=== PATIENT | male | born 1980 | race Caucasian/White ===

== ENCOUNTER 2018-05-15 10:52 | Outpatient (CLI) | payer BC, SELFPAY ==
--- NOTE | 2018-05-15 10:57 | DI.REPORT_ITS ---
SYMPTOMS/DIAGNOSIS: COUGH, WHEEZING, CHEST PAIN, R07.9 PA AND LATERAL CHEST: Comparison 05/15/15. The heart is normal in size. The lungs are clear. The mediastinal structures and pleura appear intact. CONCLUSION: Normal chest.
== END 2018-05-15 10:53 ==
PROVIDERS: PCP Family Medicine
DX: R07.9 Chest pain, unspecified (principal); R05 Cough; R06.2 Wheezing
CPT/HCPCS: 71046

== ENCOUNTER 2018-07-28 01:14 | Outpatient (CLI) | payer BC, SELFPAY ==
--- NOTE | 2018-07-28 06:51 | DI.US_ITS ---
SYMPTOMS/DIAGNOSIS: ABDOMINAL PAIN, LEFT LOWER QUADRANT, R10.9, ? HERNIA; LEFT TESTICULAR PAIN, N50.812 ABDOMINAL ULTRASOUND: Routine examination. The aorta and IVC are unremarkable. The liver, gallbladder, common duct, kidneys and spleen are unremarkable. The pancreas was not well visualized due to overlying bowel. No free fluid is seen in the abdomen. IMPRESSION: Negative abdominal ultrasound. TESTICULAR ULTRASOUND: Routine examination. The right testicle measures 5 x 4.3 x 2.7 cm. It is homogeneous with normal blood flow. No intratesticular masses seen. There is a single 1 mm calcification in the right testicle. The right epididymis shows no evidence of a mass. There is normal blood flow. The left testicle measures 4.7 x 3.7 x 2.0 cm. It is homogeneous with normal blood flow. No intratesticular masses seen. There are two 2 mm calcifications seen within the testicle. The left epididymis appears grossly unremarkable with normal blood flow. Incidental note is made of a left varicocele. IMPRESSION: No evidence of an intratesticular mass. No evidence to suggest epididymitis, or orchitis or testicular torsion. ULTRASOUND OF THE INGUINAL REGION: Sonographic evaluation of the inguinal regions was performed bilaterally. No findings to suggest an inguinal hernia are seen sonographically. The infraumbilical region was evaluated sonographically. No findings to suggest an infraumbilical hernia are seen. IMPRESSION: No evidence of an inguinal or infraumbilical hernia.
== END 2018-07-28 01:34 ==
PROVIDERS: PCP Family Medicine; Visit Provider Family Medicine
DX: R10.32 Left lower quadrant pain (principal); N50.812 Left testicular pain; I86.1 Scrotal varices
CPT/HCPCS: 76857; 76700; 76870

== ENCOUNTER 2018-11-24 01:04 | Outpatient (CLI) | payer BC, SELFPAY ==
[2018-11-24 09:44] LABS: Cholesterol 164 mg/dL (50-200); Glucose 114 mg/dL (70-100); HDL Cholesterol 56 mg/dL (40-60); LDL CHOLESTEROL 90 mg/dL (<100); TSH 3.06 uIU/mL (0.358-3.74); Triglyceride 71 mg/dL (30-150)
[2018-11-24 10:02] LABS: FREE T4 0.96 ng/dL (0.76-1.46)
== END 2018-11-24 01:24 ==
PROVIDERS: Nurse Practitioner Family; PCP Family Medicine; Visit Provider Family Medicine
DX: E03.9 Hypothyroidism, unspecified (principal); E78.5 Hyperlipidemia, unspecified
CPT/HCPCS: 36415; 80061; 82947; 83721; 84439; 84443

== ENCOUNTER 2019-02-21 10:36 | Outpatient (CLI) | payer BC, SELFPAY ==
[2019-02-21 13:01] LABS: ALT 38 U/L (12-78); AST 27 U/L (15-37); Albumin 3.9 g/dL (3.4-5.0); Alkaline Phosphatase 81 U/L (46-116); Bilirubin, Direct 0.13 mg/dL (0.00-0.20); Bilirubin, Total 0.5 mg/dL (0.2-1.0)
[2019-02-23 19:21] LABS: Testosterone, Free 16.1 ng/dL (4.65-18.1); Testosterone, Total 575 ng/dL (240-950)
== END 2019-02-21 10:56 ==
PROVIDERS: PCP Family Medicine; Visit Provider Internal Medicine
DX: S30.1XXA Contusion of abdominal wall, initial encounter (principal); R53.83 Other fatigue
CPT/HCPCS: 36415; 80076; 84402; 84403

== ENCOUNTER 2019-10-20 15:26 | Emergency (ER) | payer BC, SELFPAY ==
[2019-10-20 15:32] VITALS: BP 124/79; PULSE 87; RESP 16; TEMP 36.8; O2SAT 96
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
[2019-10-20] MEDS: Ketorolac 60 MG/2 ML VIAL IM (16:09)
[2019-10-20] MEDS: Lidocaine 5% Patch 1 PATCH TP (16:09)
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
[2019-10-20] MEDS: Methocarbamol 500 MG TAB 1000 MG PO (17:29)
== END 2019-10-20 17:33 | disposition home or self-care (01) ==
PROVIDERS: Emergency Provider Physician Assistant; PCP Family Medicine
DX: M54.5 Low back pain (principal); S39.012A Strain of muscle, fascia and tendon of lower back, initial encounter; V43.52XA Car driver injured in collision with other type car in traffic accident, initial encounter
CPT/HCPCS: 96372; 99284; 72110; J1885

== ENCOUNTER 2019-11-26 08:40 | Outpatient (CLI) | payer BC, SELFPAY ==
[2019-11-26 10:17] LABS: Hemoglobin A1C 5.7 % (3.8-5.6)
[2019-11-26 10:45] LABS: TSH (W/Ref FT4) 2.29 uIU/mL (0.36-3.74)
== END 2019-11-26 09:00 ==
PROVIDERS: PCP Family Medicine; Visit Provider Family Medicine
DX: E03.9 Hypothyroidism, unspecified (principal); R73.9 Hyperglycemia, unspecified
CPT/HCPCS: 36415; 83036; 84443

== ENCOUNTER 2020-03-03 02:12 | Outpatient (CLI) | payer BC, SELFPAY ==
[2020-03-03 09:39] LABS: Abs Immature Grans 0.01 k/cumm (0.0-0.09); Absolute Basophil Count 0.01 k/cumm (0.0-0.2); Absolute Eosinophil Count 0.08 k/cumm (0.0-0.7); Absolute Monocyte Count 0.51 k/cumm (0.11-0.7); Absolute Neutrophil Count 2.62 k/cumm (1.2-6.7); Basophils % 0.2; Eosinophils % 1.5; HCT 46.3 % (40.0-50.0); Immature Grans % 0.2 %; Lymphocytes % 39.4; Mean Corp. HGB Concentration 34.6 g/dL (32.0-36.0); Mean Corpuscular Hemoglobin 33.2 pg (27.0-33.0); Mean Corpuscular Volume 96.1 fL (80-95); Mean Platelet Volume 11.2 fL (8.0-11.0); Monocytes % 9.6; Neutrophils % 49.1; Platelet Count 137 x1000/uL (130-400); RBC 4.82 m/cumm (4.50-6.00); RBC Distribution Width 14.1 % (11.8-14.1); White Blood Cell Count 5.33 k/cumm (4.4-10.8)
[2020-03-03 09:57] LABS: ALT 30 U/L (16-63); AST 26 U/L (15-37); Albumin 4.1 g/dL (3.4-5.0); Alkaline Phosphatase 74 U/L (46-116); Anion Gap 4.8 mmol/L (3-11); BUN 23 mg/dL (7-18); CO2 30.2 mmol/L (21.0-32.0); CREATININE 1.09 mg/dL (0.70-1.30); Chloride 103 mmol/L (98-107); Glucose 106 mg/dL (74-106); LDH 178 U/L (85-227); Potassium 4.2 mmol/L (3.5-5.1); Sodium 138 mmol/L (136-145); Total Protein 7.2 g/dL (6.4-8.2)
[2020-03-26 13:42] LABS: Indication for Study CML
[2020-03-26 13:43] LABS: Specimen Type Peripheral blood
[2020-03-26 13:44] LABS: BCR-ABL1 p210 FusionTranscript See Comments
[2020-03-26 13:46] LABS: BCR-ABL1 Interpretation See Comments
[2020-03-26 13:47] LABS: Limitations and Disclaimers See Comments
== END 2020-03-03 02:32 ==
PROVIDERS: PCP Family Medicine; Visit Provider Nurse Practitioner
DX: C91.01 Acute lymphoblastic leukemia, in remission (principal); Z94.81 Bone marrow transplant status
CPT/HCPCS: 36415; 80053; 81206; 83615; 85025

== ENCOUNTER 2020-04-16 10:06 | Outpatient (REF) | payer BC, SELFPAY ==
[2020-04-17 18:37] LABS: Chlamydia Result Negative (Negative); GC Result Negative (Negative)
== END 2020-04-16 10:26 ==
LOC: LBN 10:06
PROVIDERS: PCP Family Medicine; Visit Provider Family Medicine
DX: Z20.2 Contact with and (suspected) exposure to infections with a predominantly sexual mode of transmission (principal)
CPT/HCPCS: 87491; 87591

== ENCOUNTER 2020-04-24 02:28 | Outpatient (CLI) | payer BC, SELFPAY ==
[2020-04-25 10:13] LABS: HIV-1/2 Ag & Ab Screen Negative (Negative)
== END 2020-04-24 02:48 ==
PROVIDERS: PCP Family Medicine; Visit Provider Family Medicine
DX: Z00.00 Encounter for general adult medical examination without abnormal findings (principal)
CPT/HCPCS: 36415; 87389

== ENCOUNTER 2020-10-02 02:37 | Outpatient (CLI) | payer BC, SELFPAY ==
[2020-10-03 15:24] LABS: COVID-19 RT-PCR Result NEGATIVE (Negative)
== END 2020-10-02 02:57 ==
PROVIDERS: PCP Family Medicine; Visit Provider Family Medicine
DX: Z20.822 Contact with and (suspected) exposure to COVID-19 (principal)
CPT/HCPCS: U0003

== ENCOUNTER 2020-11-28 02:37 | Outpatient (CLI) | payer BC, SELFPAY ==
[2020-12-01 11:47] LABS: HIV-1/2 Ag & Ab Screen Negative (Negative)
[2020-12-01 15:46] LABS: Chlamydia Result Negative (Negative); GC Result Negative (Negative)
== END 2020-11-28 02:38 | disposition home or self-care (01) ==
LOC: LBO 02:37
PROVIDERS: PCP Family Medicine; Visit Provider Family Medicine
DX: Z00.00 Encounter for general adult medical examination without abnormal findings (principal); Z20.2 Contact with and (suspected) exposure to infections with a predominantly sexual mode of transmission; Z11.4 Encounter for screening for human immunodeficiency virus [HIV]
CPT/HCPCS: 36415; 87389; 87491; 87591

== ENCOUNTER 2021-01-14 11:08 | Outpatient (REF) | payer BC, SELFPAY ==
[2021-01-14 14:11] LABS: Calculated LDL 108 mg/dL (<100); Cholesterol 178 mg/dL (<200); HDL Cholesterol 60 mg/dL (40-60); Triglyceride 54 mg/dL (<150)
== END 2021-01-14 11:09 | disposition home or self-care (01) ==
LOC: NCHCN 11:08
PROVIDERS: PCP Family Medicine; Visit Provider Family Medicine
DX: E78.5 Hyperlipidemia, unspecified (principal); E03.9 Hypothyroidism, unspecified
CPT/HCPCS: 80061; 84402; 84403; 84443

== ENCOUNTER 2021-01-29 02:19 | Outpatient (CLI) | payer BC, SELFPAY ==
[2021-01-29 10:25] LABS: Hemoglobin A1C 5.3 % (<5.7)
== END 2021-01-29 02:20 | disposition home or self-care (01) ==
PROVIDERS: PCP Family Medicine; Visit Provider Family Medicine
DX: R73.9 Hyperglycemia, unspecified (principal)
CPT/HCPCS: 36415; 83036

== ENCOUNTER 2021-03-17 03:23 | Outpatient (CLI) | payer BC, SELFPAY ==
[2021-03-19 17:38] LABS: Testosterone, Free 13.1 ng/dL (4.46-17.1); Testosterone, Total 687 ng/dL (240-950)
== END 2021-03-17 03:24 | disposition home or self-care (01) ==
LOC: LBO 03:23
PROVIDERS: PCP Family Medicine; Visit Provider Family Medicine
DX: N52.9 Male erectile dysfunction, unspecified (principal)
CPT/HCPCS: 36415; 84402; 84403

== ENCOUNTER 2022-04-09 02:28 | Outpatient (CLI) | payer BC, SELFPAY ==
[2022-04-09 08:22] LABS: Abs Immature Grans 0.01 10^3/uL (0.0-0.06); Absolute Basophil Count 0.03 10^3/uL (0.0-0.2); Absolute Eosinophil Count 0.14 10^3/uL (0.0-0.7); Absolute Lymphocyte Count 2.25 10^3/uL (1.2-3.4); Absolute Monocyte Count 0.59 10^3/uL (0.1-0.8); Absolute Neutrophil Count 2.45 10^3/uL (1.2-6.7); Basophils % 0.5; Eosinophils % 2.6; HCT 46.5 % (40.0-50.0); Immature Grans % 0.2; Lymphocytes % 41.1; MCH 33.1 pg (27.0-33.0); MCHC 34.4 % (32.0-36.0); MCV 96 fL (80-95); MPV 10.4 fL (8.0-11.0); Monocytes % 10.8; Neutrophils % 44.8; Platelet Count 160 10^3/uL (130-400); RBC 4.83 10^6/uL (4.36-5.78); RDW 13.6 % (11.8-14.1); RDW-SD 48.1 fL; WBC 5.47 10^3/uL (4.4-10.8)
[2022-04-09 08:44] LABS: Hemoglobin A1C 5.2 % (<5.7)
[2022-04-09 08:51] LABS: ALT 29 U/L (16-63); AST 21 U/L (15-37); Albumin 3.8 g/dL (3.4-5.0); Alkaline Phosphatase 68 U/L (46-116); Anion Gap 8.8 mmol/L (3-11); BUN 16 mg/dL (7-18); Bilirubin, Total 0.5 mg/dL (0.2-1.0); CO2 27.2 mmol/L (21.0-32.0); CREATININE 1.1 mg/dL (0.70-1.30); Calcium 8.9 mg/dL (8.5-10.1); Chloride 103 mmol/L (98-107); Glucose 105 mg/dL (74-106); Sodium 139 mmol/L (136-145); Total Protein 6.9 g/dL (6.4-8.2)
[2022-04-09 09:16] LABS: Calculated LDL 105 mg/dL (<100); Cholesterol 178 mg/dL (<200); HDL Cholesterol 61 mg/dL (40-60); Magnesium 2.1 mg/dL (1.8-2.4); TSH (W/Ref FT4) 5.01 uIU/mL (0.36-3.74); Triglyceride 60 mg/dL (<150); Vitamin B12 557 pg/mL (193-986)
[2022-04-09 09:32] LABS: FREE T4 0.88 ng/dL (0.76-1.46)
== END 2022-04-09 02:29 | disposition home or self-care (01) ==
LOC: LBO 02:28
PROVIDERS: Nurse Practitioner; PCP Family Medicine; Visit Provider Family Medicine
DX: C91.01 Acute lymphoblastic leukemia, in remission (principal)
CPT/HCPCS: 36415; 80053; 80061; 81206; 82607; 83036; 83735; 84439; 84443; 85025

== ENCOUNTER 2022-04-12 04:30 | Outpatient (CLI) | payer BC, SELFPAY | END 2022-04-12 04:31 | disposition home or self-care (01) | LOC: LBO 04:30 | PROVIDERS: PCP Family Medicine; Visit Provider Nurse Practitioner ==

== ENCOUNTER 2022-04-14 03:49 | Outpatient (CLI) | payer BC, SELFPAY ==
[2022-04-21 15:12] LABS: Specimen Type Blood
[2022-04-21 15:40] LABS: Interpretation See Comments
== END 2022-04-14 03:50 | disposition home or self-care (01) ==
LOC: LBO 03:49
PROVIDERS: PCP Family Medicine; Visit Provider Nurse Practitioner
DX: C91.01 Acute lymphoblastic leukemia, in remission
CPT/HCPCS: 36415; 81206; 81207

== ENCOUNTER 2022-05-14 17:07 | Outpatient (REF) | payer BC, SELFPAY | END 2022-05-14 17:08 | disposition home or self-care (01) | LOC: LBN 17:07 | PROVIDERS: PCP Family Medicine; Visit Provider Physician Assistant | DX: L03.032 Cellulitis of left toe; M79.675 Pain in left toe(s); L08.89 Other specified local infections of the skin and subcutaneous tissue | CPT/HCPCS: 87077; 87070; 87186; 87205 ==

== ENCOUNTER 2022-07-19 21:13 | Outpatient (REF) | payer BC, SELFPAY ==
[2022-07-21 14:38] LABS: Chlamydia Result Negative (Negative); GC Result Negative (Negative)
== END 2022-07-19 21:14 | disposition home or self-care (01) ==
LOC: NCHCN 21:13
PROVIDERS: PCP Family Medicine; Visit Provider Nurse Practitioner Family
DX: Z20.2 Contact with and (suspected) exposure to infections with a predominantly sexual mode of transmission (principal)
CPT/HCPCS: 87491; 87591

== ENCOUNTER 2023-02-17 04:26 | Outpatient (CLI) | payer BC, SELFPAY ==
[2023-02-17 12:56] LABS: Hemoglobin A1C 5.3 % (<5.7)
[2023-02-25 09:06] LABS: PSA, Screening 0.9 ng/mL (<=2.5)
== END 2023-02-17 04:27 | disposition home or self-care (01) ==
LOC: LOS 04:26
PROVIDERS: PCP Family Medicine; Visit Provider Family Medicine
DX: Z12.5 Encounter for screening for malignant neoplasm of prostate (principal); E03.9 Hypothyroidism, unspecified; E11.51 Type 2 diabetes mellitus with diabetic peripheral angiopathy without gangrene; I70.209 Unspecified atherosclerosis of native arteries of extremities, unspecified extremity
CPT/HCPCS: 36415; 84153; 83036; 84443

== ENCOUNTER 2023-02-28 12:29 | Emergency (ER) | payer BC, SELFPAY ==
--- NOTE | 2023-02-28 12:30 | RT.EKG_ITS ---
APPROVED REPORT Exam: Resting ECG Reason for Exam: chest pain Patient Location: E HR:83 bpm ECG Measurements Heart Rate 83 AXIS IL 130 P 58 QRSd 101 QRS 5 QT 380 T 50 QTc 447 Conclusion Sinus rhythm...normal P axis, V-rate 60- 99 Normal sinus rhythm at a rate of 83 with interventricular conduction delay and a QRS of 101 ms. Norm al axis. IL and QTc within normal limits. No acute injury pattern. No prior for comparison.
--- NOTE | 2023-02-28 12:30 | DI.RAD_ITS ---
Exam(s) XR CHEST 2V PA LATERAL EXAM: XR CHEST 2V PA LATERAL CLINICAL HISTORY: Chest pain. TECHNIQUE: 2D digital imaging was performed. COMPARISON: CR CHEST 2 VIEWS PA,LAT from 05/15/2018 FINDINGS: 2 views: Heart size is normal. The mediastinum is not widened. Left lung is clear. Mild increased markings in the lateral right lung base appear vascular. No air bronchograms. No pleural. IMPRESSION: Increased right lung base markings which appear to be vascular more so than actual confluent infiltra te. No pleural effusions. DATA REPOSITORY: RADIATION DOSE DELIVERED:
[2023-02-28 12:34] VITALS: BP 162/94; PULSE 79; RESP 15; TEMP 37.1; O2SAT 97
--- NOTE | 2023-02-28 12:41 | W.ED.GENAD ---
Discharge Plan Disposition Patient Disposition: Home Discharge Details Clinical Impression: Upper back pain on left side, Chest pain, unspecified Primary Care Provider: David Roman ED Provider: Vitaly Stevens [place] Meds and New Rx's Prescriptions: New diazepam 5 mg tablet 5 mg PO BID PRNQty: 3 0RF Continued esomeprazole magnesium [Nexium] 40 mg capsule,delayed release(DR/EC) 40 mg PO DAILY Qty: 90 4RF ezetimibe [Zetia] 10 mg tablet 10 mg PO DAILY Qty: 90 3RF fluoride (sodium) [SF 5000 Plus] 1.1 % cream 1 applic dental BID Patient Comments: APPLY A THIN RIBBON TO TOOTHBRUSH, BRUSH THOROUGHLY ONCE DAILY FOR 2 MINUTES BEFORE BEDTIME AND SPIT OUT CPAP levothyroxine [Synthroid] 50 mcg tablet 50 mcg PO DAILY Qty: 90 3RF tadalafil 5 mg tablet 5 mg PO DAILY PRN (Reason: sexual activity) Qty: 30 5RF alprazolam 0.5 mg tablet 0.25 - 0.5 mg PO TID PRN (Reason: anxiety) Qty: 10 0RF imatinib [Gleevec] 400 MG tablet 400 mg PO DAILY Qty: 90 No Action prednisone 20 mg tablet 40 mg PO DAILY Qty: 14 0RF Discharge Instructions Additional Instructions: Please read all of the information that accompanies these instructions. You were seen in the emergency department for your chest and back pain. Your lab work and your EKG showed no sign of a heart attack. Please schedule an appointment with your primary care provider later this week. Please return to the emergency department if pass out develop worsening pain or cannot move your left arm. For your pain please take medications as follows: 1. Take acetaminophen (Tylenol), 1,000 mg (two 500 mg tabs) every 6 hours 2. Take ibuprofen (Advil), 400 mg every 6 hours. A prescription has also been sent to you for a low-dose benzodiazepine called diazepam which can help with muscle spasm. If you develop worsening chest pain or any weakness in your arm please return to the emergency department.Please do not drive or drink alcohol while taking your diazepam. Discharge Data Discharge Date/Time-TO BE ENTERED AT DEPARTURE: 02/28/23 16:32 Medical Decision Making This is an overall quite well-appearing normothermic and not tachycardic 42-year-old male with hyperlipidemia and left-sided chest pain that radiates from his back and goes into his left arm concerning for multiple etiologies. Patient is low risk for ACS and has a nonischemic ECG. He has had no fevers nor cough to suggest pneumonia. His pain is not positional to suggest pericarditis. Has not been vomiting to suggest increased risk for esophageal rupture. Given his elevated BMI will obtain a lipase as pancreatitis is certainly a possibility. Aortic dissection is certainly a possibility given that the patient had pain that began in his back. He is quite well-appearing and not hypotensive so we will obtain a D-dimer and if this is elevated will obtain a CTA of his thorax. PE is also possible as patient has had a remote prior PE. This seems to have been provoked when he had a right chest wall port in place in the setting of his leukemia. Nonetheless patient is not PERC negative so we will order a D-dimer. No rash to chest to suggest zoster. Clear equal breath sounds so I am not concerned for pneumothorax. Will reassess following two-view chest x-ray and labs. Finally musculoskeletal back pain is certainly a consideration. If labs and imaging are reassuring we will consider treating with diazepam to treat muscle spasm as patient does have a palpable knot overlying the area of his pain and on the left side of his back. No midline thoracic spinal muscle tenderness. No step-offs or deformities. As result no indication for CT thoracic spine. No vomiting to suggest increased risk for esophageal rupture. 3:30 PM CBC with no anemia thrombocytopenia nor leukocytosis. Initial troponin negative. Repeat troponin pending. Comprehensive metabolic panel with mild elevation of creatinine similar to prior. Not meeting criteria for JOSE. Normal reassuring lipase normal magnesium. 4 PM Negative D-dimer. Negative repeat troponin. Will discharge patient with return indications. HEART SCORE Chest pain Diagnostic Protocol: - [History/Physical/Gestalt: Slightly Suspicious (0)] - [EKG: Normal and/or unchanged from prior EKG (0)] - [AGE: less than 45 (0)] - [RISK FACTORS: 1 - 2 risk factors (+1)] - [TROPONIN: <= normal limit (0)] - TOTAL SCORE: 2 - Risk Factors: DM, current or recent smoker, HTN, HLD, family hx of CAD, obesity - INTERPRETATION: With a total score of 3 or less, risk of major cardiac event within six weeks 1.7%, likely lower with two negative troponins. [I explained to the patient that the risk of subsequent major cardiac event within 1 month is not 0, however risk predicted to be less than 2%. Patient verbalized understanding, accepts this risk and shared and the decision for discharge with PCP follow-up for further evaluation and management. They understand to return to the ED immediately with any worsening symptoms, new symptoms or other concerns.] HPI General Date/Time Provider Initiated Documentation: 02/28/23 12:40. HPI Narrative: This is a 42-year-old male with a history of hyperlipidemia and remote prior history of right upper extremity DVT secondary to right-sided transient chest wall port which was placed more than 10 years ago in the setting of leukemia now with back pain. Patient notes that 5 days ago he began to have back pain on his left. He says that on the day before he developed this back pain he was walking approximately 1 hour and was wearing a heavy backpack. He did not sustain any direct trauma to his back. He says that over the past several days that his pain has progressed and now radiates from his back into his left chest and his left arm. He says that his pain is relieved by some positions. He has not noticed any rash to his back or chest. He has no history of diabetes nor hypertension. He rarely drinks ethanol, denies tobacco use and occasionally uses edible marijuana. There is no family history of premature coronary artery disease. He has had no recent fevers nor URI symptoms. He has not been coughing nor does he have any shortness of breath. He denies fevers and chills. Related Data Home Medications Medication Instructions Recorded Confirmed imatinib 400 mg tablet (Gleevec) 400 mg PO DAILY ##90 10/01/13 03/01/23 Cpap 09/24/16 03/01/23 levothyroxine 50 mcg tablet 50 mcg PO DAILY #90 tab-caps 04/12/22 03/01/23 (Synthroid) tadalafil 5 mg tablet 5 mg PO DAILY PRN sexual activity 10/01/22 03/01/23 #30 tabs alprazolam 0.5 mg tablet 0.25 - 0.5 mg PO TID PRN anxiety 12/29/22 03/01/23 #10 tabs esomeprazole magnesium 40 mg 40 mg PO DAILY #90 tab-caps 01/19/23 03/01/23 capsule,delayed release (Nexium) ezetimibe 10 mg tablet (Zetia) 10 mg PO DAILY #90 tab-caps 01/19/23 03/01/23 fluoride (sodium) 1.1 % dental 1 applic dental BID 02/22/23 03/01/23 cream (SF 5000 Plus) diazepam 5 mg tablet 5 mg PO BID PRN #3 tabs 02/28/23 03/01/23 prednisone 20 mg tablet 40 mg PO DAILY #14 tabs 03/01/23 03/01/23 Previous Rx's Medication Instructions Recorded levothyroxine 50 mcg tablet 50 mcg PO DAILY #90 tab-caps 04/12/22 (Synthroid) tadalafil 5 mg tablet 5 mg PO DAILY PRN sexual activity 10/01/22 #30 tabs alprazolam 0.5 mg tablet 0.25 - 0.5 mg PO TID PRN anxiety 12/29/22 #10 tabs esomeprazole magnesium 40 mg 40 mg PO DAILY #90 tab-caps 01/19/23 capsule,delayed release (Nexium) ezetimibe 10 mg tablet (Zetia) 10 mg PO DAILY #90 tab-caps 01/19/23 diazepam 5 mg tablet 5 mg PO BID PRN #3 tabs 02/28/23 prednisone 20 mg tablet 40 mg PO DAILY #14 tabs 03/01/23 Allergies Allergy/AdvReac Type Severity Reaction Status Date / Time amitriptyline AdvReac Intermediate muscle Verified 03/01/23 15:10 weakness General Stated Complaint: Chest Pain VINCE: 3 PFSH All Active Problems (Updated 02/28/23 @ 15:31 by Vitaly Stevens MD) Upper back pain on left side (Acute) Chest pain, unspecified (Acute) Knee pain, right anterior (Acute) Non-cardiac chest pain (Acute) Left foot pain (Acute) Folliculitis (Acute) Erectile disorder, generalized, mild (Acute) STD exposure (Acute) Healthy adult (Acute) Hyperglycemia (Acute) Lumbar strain (Acute) Post-traumatic stress disorder (Acute) Impacted cerumen of left ear (Acute) History of DVT (deep vein thrombosis) (Chronic) GERD (gastroesophageal reflux disease) (Chronic) Dyslipidemia (Chronic) Lymphocytic leukemia (Chronic) Dennison palsy (Acute) Herpes zoster (Acute) a. Right sided face. 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 Check LFT's but doubtful liver injury. Call or return as needed. Cellulitis, face (Acute) a. Right sided. Right eye difficulty (Acute) History of depression (Chronic) Surgical History H/O bone marrow transplant H/O wisdom tooth extraction Family History Mother Hypothyroidism Breast cancer Father Hyperlipidemia Prostate cancer Brother Hyperlipidemia Brother Depression Hypothyroidism Anxiety Maternal Grandfather , 77 Depression Heart disease Anxiety Paternal Grandfather , 85 Prostate cancer Bladder cancer Maternal Grandmother Diabetes Hypothyroidism Paternal Grandmother Hyperlipidemia Hodgkins disease Son No problems noted. Social History Smoking/Tobacco Use Status: Former Tobacco Use Quit Date: 09/19/06 Tobacco: How many years used: 8 Second Hand Exposure: Yes Smoking risk assessment performed?: Yes Alcohol Intake: current Alcohol Intake frequency: a few times a month Alcohol type: beer, wine and hard liquor Drug use: Occasionally Substance use type: marijuana Caregiver/Support person: No Household members: children and other Details: 4 Housing: house Communication Needs: None Do you need help understanding health information?: Never current occupation: TEACHER Pets and animals: No Sexually active: Yes Do you think of yourself as: straight/heterosexual Current gender identity: male What is your relationship status?: How often do you talk on the phone with friends or family?: once per week How often do you get together with friends or relatives?: once per week How often do you attend confucianist or cheondoism services?: decline to answer Do you belong to any clubs or organized social groups?: no Panel score (0-1 are the most socially isolated patients): 0 What type of physical activity do you participate in: weight lifting and running Duration: 30-45 minutes/day Frequency: 3-4 times per week Vianca/Evangelical: No preference Special vianca needs: No Seatbelt use: always Helmet use: Yes Helmet use: always Drive intox or ride w/intox school bus driver/mechanic: No Do you feel safe at home: Yes Do you feel safe in your relationship?: Yes Exam Narrative Exam Narrative: General: Well-appearing in no acute distress speaking in complete sentences. Head: Normocephalic, atraumatic. Eye: Pupils equal, round reactive to light. Extraocular eye movements intact. No conjunctival injection. No scleral icterus. Ear, nose, mouth, throat: Grossly normal inspection. Normal voice, handling secretions normally. Neck: Trachea midline. Cardiovascular: Well-perfused distal extremities. Regular rate and rhythm. Respiratory: Nonlabored respiration.Clear lungs bilaterally. Gastrointestinal: Nondistended abdomen. Soft nontender. Back: No midline thoracic or lumbar spinal tenderness. Overlying the patient's area of maximal pain there is a tender knot in his left paraspinal muscle just medial to his scapula. Musculoskeletal: No edema. Moving all 4 extremities spontaneously. 5 out of 5 left upper extremity strength in the arm. Median radial and ulnar nerves intact in the left hand. 2+ left radial pulse. Less than 2-second cap refill in the left hand. Skin: Normal for age and race, grossly normal temperature and turgor. No acute rash. Neurologic: Alert and appropriate, no apparent acute deficits. Psychiatric: Mood and manner are appropriate. Grooming and personal hygiene are appropriate. Course Vital Signs Vital signs: Vital Signs Temperature 37.1 C 02/28/23 12:34 Pulse 79 02/28/23 12:34 Respiratory Rate 15 02/28/23 12:34 Blood Pressure 162/94 H 02/28/23 12:34 Pulse Oximetry 97 02/28/23 12:34 Temperature 37.1 C 02/28/23 12:34 Temperature Source Temporal Artery Scan 02/28/23 12:34 Pulse 79 02/28/23 12:34 Respiratory Rate 15 02/28/23 12:34 Respiratory Effort Normal 02/28/23 12:37 Blood Pressure 162/94 H 02/28/23 12:34 Blood Pressure Position Sitting 02/28/23 12:34 Pulse Oximetry 97 02/28/23 12:34 Oxygen Delivery Method Room Air 02/28/23 12:34 Oxygen Flow Rate 0 02/28/23 12:34 Pain Level 7 02/28/23 12:34 PAWSS Have you Been Recently Intoxicated or Drunk Within the Last 30 days?: No Have you Ever Experienced Previous Episodes of Alcohol Withdrawal?: No Have you ever Experienced Withdrawal Seizures?: No Have you ever Experienced Delirium Tremens(DT)s?: No Have you ever undergone Alcohol Rehabilitation Treatment (i.e, inpt ot outpatient treatment programs)?: No Have you ever Experienced Blackouts?: No Have you ever Combined Alcohol with other Downers within the last 90 days?: No Have you ever Combined Alcohol with any other Substance of Abuse during the last 90 days?: No Result: 0
[2023-02-28 13:55] LABS: Abs Immature Grans 0.01 10^3/uL (0.0-0.06); Absolute Basophil Count 0.01 10^3/uL (0.0-0.2); Absolute Eosinophil Count 0.06 10^3/uL (0.0-0.7); Absolute Monocyte Count 0.39 10^3/uL (0.1-0.8); Absolute Neutrophil Count 2.46 10^3/uL (1.2-6.7); Basophils % 0.2; Eosinophils % 1.2; HCT 43.6 % (40.0-50.0); HGB 15.1 g/dL (13.5-17.5); Immature Grans % 0.2; Lymphocytes % 39.3; MCH 32.7 pg (27.0-33.0); MCHC 34.6 % (32.0-36.0); MCV 94 fL (80-95); MPV 10.5 fL (8.0-11.0); Monocytes % 8.1; Platelet Count 142 10^3/uL (130-400); RBC 4.62 10^6/uL (4.36-5.78); RDW 13.7 % (11.8-14.1); RDW-SD 47.8 fL; WBC 4.83 10^3/uL (4.4-10.8)
[2023-02-28 14:04] VITALS: RESP 15
[2023-02-28 14:49] LABS: ALT 26 U/L (16-63); AST 24 U/L (15-37); Albumin 3.9 g/dL (3.4-5.0); Alkaline Phosphatase 77 U/L (46-116); Anion Gap 5.2 mmol/L (3-11); BUN 17 mg/dL (7-18); Bilirubin, Total 0.8 mg/dL (0.2-1.0); CO2 28.8 mmol/L (21.0-32.0); CREATININE 1.4 mg/dL (0.70-1.30); Calcium 8.6 mg/dL (8.5-10.1); Chloride 104 mmol/L (98-107); Estimated GFR 63.96 (mL/min/1.73m2); Glucose 96 mg/dL (74-106); Lipase 26 U/L (16-77); Potassium 3.5 mmol/L (3.5-5.1); Sodium 138 mmol/L (136-145); Total Protein 6.9 g/dL (6.4-8.2); Troponin I < 50 ng/L (<or=60)
[2023-02-28 15:47] LABS: Troponin I < 50 ng/L (<or=60)
[2023-02-28 15:55] LABS: D-Dimer 267 ng/mlFEU (<500)
== END 2023-02-28 16:32 | disposition home or self-care (01) ==
PROVIDERS: Emergency Provider Emergency Medicine; PCP Family Medicine
DX: R07.9 Chest pain, unspecified (principal); M54.9 Dorsalgia, unspecified
CPT/HCPCS: 36415; 80053; 83690; 93005; 99284; 71046; 83735; 84484; 85025; 85379; 93010

== ENCOUNTER 2023-03-04 01:16 | Outpatient (CLI) | payer BC, SELFPAY ==
--- NOTE | 2023-03-04 07:15 | DI.RAD_ITS ---
Exam(s) XR KNEE RT 3V AP,LAT,VIVIEN EXAM: XR KNEE RT 3V AP,LAT,VIVIEN CLINICAL HISTORY: rt knee pain for one week; no trauma; suprapatellar pain,m25.561. TECHNIQUE: 2D digital imaging was performed. COMPARISON: No exams were available for comparison FINDINGS: 3 views No evidence fracture or obvious joint effusion. No degenerative changes. Bone density normal. No o sseous. IMPRESSION: No significant osseous findings in the knee. DATA REPOSITORY: RADIATION DOSE DELIVERED:
== END 2023-03-04 01:36 ==
LOC: DI 01:17
PROVIDERS: PCP Family Medicine; Visit Provider Family Medicine
DX: M25.561 Pain in right knee (principal)
CPT/HCPCS: 73562

== ENCOUNTER → 2023-05-31 10:38 | Outpatient (CLI) | payer BC, SELFPAY ==
--- NOTE | 2023-05-31 09:45 | DI.RAD_ITS ---
Exam(s) XR HAND RT COMPLETE EXAM: XR HAND RT COMPLETE CLINICAL HISTORY: right hand pain M79.641 PAIN RT HAND. TECHNIQUE: 2D digital imaging was performed. Three views. COMPARISON: No exams were available for comparison FINDINGS: BONES: No acute fracture is present. No bony destructive lesion is seen. Smoothly marginated small bony density seen adjacent to the radial base of the proximal phalanx of the thumb. JOINTS: No dislocation present. No significant degenerative changes. SOFT TISSUE: Normal. IMPRESSION: Unremarkable radiographs of the right hand. DATA REPOSITORY: RADIATION DOSE DELIVERED:
== END ==
PROVIDERS: PCP Family Medicine; Visit Provider Nurse Practitioner Family
DX: M79.641 Pain in right hand (principal)
CPT/HCPCS: 73130

== ENCOUNTER 2023-09-26 13:51 | Outpatient (CLI) | payer BC, SELFPAY ==
[2023-09-26 12:05] LABS: Abs Immature Grans 0.02 10^3/uL (0.0-0.06); Absolute Basophil Count 0.02 10^3/uL (0.0-0.2); Absolute Eosinophil Count 0.06 10^3/uL (0.0-0.7); Absolute Lymphocyte Count 2.33 10^3/uL (1.2-3.4); Absolute Monocyte Count 0.53 10^3/uL (0.1-0.8); Absolute Neutrophil Count 2.72 10^3/uL (1.2-6.7); Basophils % 0.4; Eosinophils % 1.1; HGB 15.7 g/dL (13.5-17.5); Immature Grans % 0.4; MCH 31.8 pg (27.0-33.0); MCHC 34.1 % (32.0-36.0); MCV 93 fL (80-95); Monocytes % 9.3; Neutrophils % 47.8; Platelet Count 157 10^3/uL (130-400); RBC 4.94 10^6/uL (4.36-5.78); RDW 13.6 % (11.8-14.1); RDW-SD 47.1 fL; WBC 5.68 10^3/uL (4.4-10.8)
[2023-09-26 12:19] LABS: ALT 36 U/L (16-63); AST 27 U/L (15-37); Albumin 3.9 g/dL (3.4-5.0); Alkaline Phosphatase 70 U/L (46-116); Anion Gap 6.1 mmol/L (3-11); BUN 17 mg/dL (7-18); Bilirubin, Total 0.9 mg/dL (0.2-1.0); CO2 26.9 mmol/L (21.0-32.0); CREATININE 1.2 mg/dL (0.70-1.30); Chloride 104 mmol/L (98-107); Estimated GFR 76.48 (mL/min/1.73m2); Glucose 104 mg/dL (74-106); Potassium 4.1 mmol/L (3.5-5.1); Sodium 137 mmol/L (136-145); Total Protein 7.2 g/dL (6.4-8.2)
== END 2023-09-26 13:52 | disposition home or self-care (01) ==
LOC: LBO 13:51
PROVIDERS: PCP Family Medicine; Visit Provider Internal Medicine Hematology & Oncology
DX: C91.01 Acute lymphoblastic leukemia, in remission (principal); Z94.81 Bone marrow transplant status
CPT/HCPCS: 36415; 80053; 85025

== ENCOUNTER 2023-10-28 13:25 | Outpatient (REF) | payer BC, SELFPAY | END 2023-10-28 13:26 | disposition home or self-care (01) | LOC: LBN 13:25 | PROVIDERS: PCP Family Medicine; Visit Provider Physician Assistant | DX: J02.9 Acute pharyngitis, unspecified (principal) | CPT/HCPCS: 87070 ==

== ENCOUNTER 2024-02-17 00:55 | Outpatient (CLI) | payer BC, SELFPAY ==
[2024-02-17 10:55] LABS: HCT 47.9 % (40.0-50.0); HGB 16.5 g/dL (13.5-17.5); MCH 32.7 pg (27.0-33.0); MCHC 34.4 % (32.0-36.0); MCV 95 fL (80-95); Platelet Count 184 10^3/uL (130-400); RBC 5.05 10^6/uL (4.36-5.78); RDW 14.3 % (11.8-14.1); RDW-SD 49.9 fL; WBC 5.46 10^3/uL (4.4-10.8)
[2024-02-17 11:18] LABS: Hemoglobin A1C 5.5 % (<5.7)
[2024-02-17 11:28] LABS: Calculated LDL 132 mg/dL (<100); Cholesterol 211 mg/dL (<200); HDL Cholesterol 58 mg/dL (40-60); Triglyceride 107 mg/dL (<150)
[2024-02-17 18:34] LABS: PSA, Screening 0.8 ng/mL (<=2.5)
[2024-02-29 16:59] LABS: Testosterone, Free 13.5 ng/dL (4.46-17.1); Testosterone, Total 510 ng/dL (240-950)
== END 2024-02-17 00:56 | disposition home or self-care (01) ==
LOC: LBO 00:55
PROVIDERS: PCP Family Medicine; Visit Provider Family Medicine
DX: R53.83 Other fatigue (principal); E78.5 Hyperlipidemia, unspecified; E11.51 Type 2 diabetes mellitus with diabetic peripheral angiopathy without gangrene; Z12.5 Encounter for screening for malignant neoplasm of prostate; Z00.00 Encounter for general adult medical examination without abnormal findings
CPT/HCPCS: 36415; 80061; 84153; 84402; 84403; 85027; 83036

== ENCOUNTER → 2024-03-07 11:38 | Outpatient (CLI) | payer BC, SELFPAY ==
--- NOTE | 2024-03-07 11:00 | DI.RAD_ITS ---
Exam(s) XR LUMBAR SPINE COMPLETE EXAM: XR LUMBAR SPINE COMPLETE CLINICAL HISTORY: low back pain ; hx of leukemia remotely, back pain, M54.9 dorsalgia. TECHNIQUE: 2D digital imaging was performed. Five views. COMPARISON: CR,XR XR LUMBAR SPINE COMPLETE from 10/20/2019 FINDINGS: BONES: No fracture or destructive lesion. Vertebral body heights are maintained. Mild facet hypertro phy identified. Bones are normally mineralized. DISKS: Intervertebral disc spaces are maintained. ALIGNMENT: Lumbar spinal alignment is within normal limits. SOFT TISSUE: Normal. IMPRESSION: Mild degenerative changes of facet joints of lower lumbar spine. DATA REPOSITORY: RADIATION DOSE DELIVERED:
== END ==
PROVIDERS: PCP Family Medicine; Visit Provider Family Medicine
DX: M51.36 Other intervertebral disc degeneration, lumbar region (principal)
CPT/HCPCS: 72110

== ENCOUNTER 2024-04-09 01:56 | Outpatient (CLI) | payer BC, SELFPAY ==
[2024-04-09 12:19] LABS: Abs Immature Grans 0.04 10^3/uL (0.0-0.06); Absolute Basophil Count 0.03 10^3/uL (0.0-0.2); Absolute Lymphocyte Count 1.97 10^3/uL (1.2-3.4); Absolute Monocyte Count 0.75 10^3/uL (0.1-0.8); Absolute Neutrophil Count 7.81 10^3/uL (1.2-6.7); Basophils % 0.3 %; Eosinophils % 0.9 %; HCT 48.5 % (40.0-50.0); HGB 16.6 g/dL (13.5-17.5); Immature Grans % 0.4 %; Lymphocytes % 18.4 %; MCH 32.5 pg (27.0-33.0); MCHC 34.2 % (32.0-36.0); MCV 95 fL (80-95); MPV 10.5 fL (8.0-11.0); Platelet Count 153 10^3/uL (130-400); RBC 5.11 10^6/uL (4.36-5.78); RDW 13.6 % (11.8-14.1); RDW-SD 48.3 fL
[2024-04-09 12:57] LABS: ALT 33 U/L (16-63); AST 25 U/L (15-37); Albumin 3.8 g/dL (3.4-5.0); Alkaline Phosphatase 86 U/L (46-116); Anion Gap 9.3 mmol/L (3-11); BUN 10 mg/dL (7-18); Bilirubin, Total 1.09 mg/dL (0.2-1.0); CO2 26.7 mmol/L (21.0-32.0); Calcium 8.9 mg/dL (8.5-10.1); Chloride 104 mmol/L (98-107); Estimated GFR 95.18 (mL/min/1.73m2); Glucose 116 mg/dL (74-106); Potassium 3.9 mmol/L (3.5-5.1); Sodium 140 mmol/L (136-145)
[2024-04-12 09:00] LABS: Indication for Study See Comments; Specimen Type Blood
[2024-04-12 09:01] LABS: BCR-ABL1 p210 FusionTranscript See Comments
[2024-04-12 09:02] LABS: BCR-ABL1 Interpretation See Comments
[2024-04-12 09:03] LABS: Limitations and Disclaimers See Comments
== END 2024-04-09 01:57 | disposition home or self-care (01) ==
LOC: LOS 01:57
PROVIDERS: PCP Family Medicine; Visit Provider Internal Medicine Hematology & Oncology
DX: C91.01 Acute lymphoblastic leukemia, in remission (principal); Z94.81 Bone marrow transplant status
CPT/HCPCS: 36415; 80053; 81206; 85025

== ENCOUNTER 2024-11-24 15:17 | Emergency (ER) | payer BC, SELFPAY ==
[2024-11-24 15:29] VITALS: BP 149/89; PULSE 81; RESP 12; TEMP 36.7; O2SAT 99
--- NOTE | 2024-11-24 15:45 | DI.CT_ITS ---
Exam(s) CT ABDOMEN PELVIS W EXAM: CT ABDOMEN PELVIS W CLINICAL HISTORY: llq abd pain. TECHNIQUE: Imaging Protocol: Axial computed tomography images with coronal and sagittal reformatted images were created and reviewed CONTRAST MATERIAL: Intravenous: Omnipaque-350 100cc Oral: None COMPARISON: No exams were available for comparison FINDINGS: VISUALIZED LUNG BASES: No nodules nor pleural effusions evident. ABDOMEN: There is no ascites. LIVER: There are no focal hepatic lesions evident. No dilated intrahepatic ducts. GALLBLADDER/BILIARY: No obvious gallbladder pathology. CBD is not dilated. PANCREAS: No evidence of pancreatic mass nor dilatation of the pancreatic duct. SPLEEN: Spleen is not enlarged. No obvious intrasplenic lesions. Splenic and portal veins are paten t. ADRENALS: There are no significant adrenal masses. KIDNEYS:No cysts evident. No solid renal masses. No calculi nor hydronephrosis.. ABDOMINAL AORTA: Abdominal aorta is not enlarged. LYMPH NODES:There is no retroperitoneal nor paraaortic adenopathy. ABDOMINAL WALL: No evidence of significant anterior abdominal wall nor inguinal hernia. GI: There is diverticulosis of the descending-left colon is well as the sigmoid. There is some wall thickening in the sigmoid and some perisigmoid streaking. Findings are consistent with acute diverti culitis. There is no abscess. No free intra-abdominal air. PELVIS: GI: No evidence of appendicitis. LYMPH NODES: There is no intrapelvic nor inguinal adenopathy. REPRODUCTIVE: Prostate size normal. Seminal vesicles unremarkable. URINARY BLADDER: No calculi nor obvious masses evident OSSEOUS: No fractures and no significant osseous lesions. Sacroiliac joints appear unremarkable. IMPRESSION: 1. Findings are consistent with acute sigmoid diverticulitis. There is no free intraperitoneal air. There is no abscess at this time. Report called by myself to ER physician 11/24/2024 at 5:05 p.m. RADIATION DOSE DELIVERED: 531.09mGy.cm Total DLP DATA REPOSITORY: All CT scans at this facility are submitted to the National Radiology Data Registry (NRDR) Dose Index Registry (DIR) with the [employer] (A[employer]). RADIATION OPTIMIZATION: All CT scans at this facility use at least one of these dose optimization te chniques: automated exposure control; mA and/or kV adjustment per patient size (includes targeted exa ms where dose is matched to clinical indication); or iterative reconstruction.
--- NOTE | 2024-11-24 15:53 | ED.GENADUL_ITS ---
Discharge Plan Disposition Patient Disposition: Home Condition: Stable Discharge Details Clinical Impression: Sigmoid diverticulitis Primary Care Provider: David Roman ED Provider: Bashir Mcdonald Home Meds and New Rx's Prescriptions: New amoxicillin-pot clavulanate 875-125 mg tablet 1 tab PO BID 9 Days Qty: 18 0RF No Action esomeprazole magnesium [Nexium] 40 mg capsule,delayed release(DR/EC) 40 mg PO DAILY Qty: 90 4RF ezetimibe [Zetia] 10 mg tablet 10 mg PO DAILY Qty: 90 3RF tadalafil 5 mg tablet 5 mg PO DAILY PRN (Reason: sexual activity) Qty: 30 5RF CPAP levothyroxine [Synthroid] 50 mcg tablet 50 mcg PO DAILY Qty: 90 3RF alprazolam 0.5 mg tablet 0.25 - 0.5 mg PO TID PRN (Reason: anxiety) Qty: 10 0RF imatinib [Gleevec] 400 MG tablet 400 mg PO DAILY Qty: 90 Discharge Instructions Instructions: Diverticulitis (DC) Additional Instructions: Your lab work looks great today, your CT scan demonstrates sigmoid diverticulitis, which is an inflammation and infection in the bowel wall without any signs of significant complication. Given your history, we will treat this with antibiotics. You have been prescribed Augmentin to take for 10 total days. Your first day was provided in the emergency department and the remaining 9 days was sent to the pharmacy. You have also been given some Zofran to take as needed for nausea. Continue clear liquid diet and advance it slowly as tolerated. Return with fever, chills, or worsened severe abdominal pain. You have been referred to general surgery for follow-up for a colonoscopy to be performed after your infection has resolved. HPI General Date/Time Provider Initiated Documentation: 11/24/24 15:37 . Limitations to Documentation: no limitations . Information obtained by: patient and old records reviewed . 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 He reports that the pain has been ongoing for the last 2 days. It is associated with decreased appetite. Mild nausea, no vomiting. Denies any diarrhea. He states that he has not had any fever or chills. Pain is tolerable if he does not move, but any movement or touching of the area makes his pain worse. No sick contacts. Related Data Home Medications ?Medication ?Instructions ?Recorded ?Confirmed imatinib 400 mg tablet (Gleevec) 400 mg PO DAILY ##90 10/01/13 11/24/24 Cpap 09/24/16 04/20/24 esomeprazole magnesium 40 mg 40 mg PO DAILY #90 tab-caps 01/25/24 11/24/24 capsule,delayed release (Nexium) ezetimibe 10 mg tablet (Zetia) 10 mg PO DAILY #90 tab-caps 01/25/24 11/24/24 tadalafil 5 mg tablet 5 mg PO DAILY PRN sexual activity 01/25/24 11/24/24 #30 tabs levothyroxine 50 mcg tablet 50 mcg PO DAILY #90 tab-caps 09/03/24 11/24/24 (Synthroid) alprazolam 0.5 mg tablet 0.25 - 0.5 mg (0.5 - 1 x 0.5 mg) 09/04/24 11/24/24 PO TID PRN anxiety #10 tabs amoxicillin 875 mg-potassium 1 tab PO BID 9 days #18 tabs 11/24/24 clavulanate 125 mg tablet Previous Rx's ?Medication ?Instructions ?Recorded esomeprazole magnesium 40 mg 40 mg PO DAILY #90 tab-caps 01/25/24 capsule,delayed release (Nexium) ezetimibe 10 mg tablet (Zetia) 10 mg PO DAILY #90 tab-caps 01/25/24 tadalafil 5 mg tablet 5 mg PO DAILY PRN sexual activity 01/25/24 #30 tabs levothyroxine 50 mcg tablet 50 mcg PO DAILY #90 tab-caps 09/03/24 (Synthroid) alprazolam 0.5 mg tablet 0.25 - 0.5 mg (0.5 - 1 x 0.5 mg) 09/04/24 PO TID PRN anxiety #10 tabs amoxicillin 875 mg-potassium 1 tab PO BID 9 days #18 tabs 11/24/24 clavulanate 125 mg tablet Allergies Allergy/AdvReac Type Severity Reaction Status Date / Time amitriptyline AdvReac Intermediate muscle Verified 11/24/24 15:35 weakness General Stated Complaint: Abd Prob VINCE: 3 Exam Narrative Exam Narrative: Review of Systems: All systems reviewed & are unremarkable except as noted in HPI and below Well-developed, no acute distress NCAT PERRL, normal conjunctiva RRR Unlabored respiratory effort clear bilaterally Nondistended abdomen soft, tenderness and guarding in the left lower quadrant, possible palpable mass No rashes or lesions. no focal neurologic deficits Appropriate mood and affect Course Vital Signs Vital signs: Vital Signs Temperature 36.7 C 11/24/24 15:29 Pulse 81 11/24/24 15:29 Respiratory Rate 12 11/24/24 15: Blood Pressure 149/89 H 11/24/24 15: Pulse Oximetry 99 11/24/24 15: Temperature 36.7 C 11/24/24 15: Temperature Source Oral 11/24/24 15: Pulse 81 11/24/24 15:29 Respiratory Rate 12 11/24/24 15:29 Blood Pressure 149/89 H 11/24/24 15:29 Blood Pressure Position Sitting 11/24/24 15:29 Pulse Oximetry 99 11/24/24 15:29 Oxygen Delivery Method Room Air 11/24/24 15: Oxygen Flow Rate 0 11/24/24 15:29 Pain Level 1 11/24/24 15:29 Medical Decision Making Emergent evaluation of left lower quadrant abdominal pain. Initial differential includes recurrent malignancy, diverticulitis, intra-abdominal abscess. Patient is afebrile and otherwise hemodynamically stable. He does have sign ificant tenderness in the right lower quadrant with a possible palpable mass. He says that the symptoms are reminiscent of his initial diagnosis of leukemia 20+ years ago. He has no other sick symptoms. Plan for pain control, lab work and CT imaging to further evaluate. Lab work reviewed. There is no significant leukocytosis or renal dysfunction. I discussed the CT scan with the radiologist and there is evidence of sigmoid diverticulitis. No evidence of recurrent malignancy, abscess or perforation. Given his history of bone marrow transplant and ongoing chemotherapy, I will treat this with antibiotics. First dose of Augmentin given in the emergency department and will prescribe a course of 10 days. Also provided Zofran as needed for nausea. Recommend Tylenol for pain control. Strict return precautions advised and he has been referred to general surgery for follow-up colonoscopy after resolution of symptoms. Quality:[facility] Related Social Needs: No Data to Display [facility] All Active Problems (Updated 11/24/24 @ 17:40 by Bashir Mcdonald MD) Sigmoid diverticulitis (Acute) Subconjunctival hemorrhage (Acute) Low back pain (Acute) Knee pain, right anterior (Acute) Non-cardiac chest pain (Acute) Left foot pain (Acute) Folliculitis (Acute) Erectile disorder, generalized, mild (Acute) STD exposure (Acute) Healthy adult (Acute) Hyperglycemia (Acute) Lumbar strain (Acute) Post-traumatic stress disorder (Acute) Impacted cerumen of left ear (Acute) History of DVT (deep vein thrombosis) (Chronic) GERD (gastroesophageal reflux disease) (Chronic) Dyslipidemia (Chronic) Lymphocytic leukemia (Chronic) Dennison palsy (Acute) Herpes zoster (Acute) a. Right sided face. 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 Check LFT's but doubtful liver injury. Call or return as needed. Cellulitis, face (Acute) a. Right sided. Right eye difficulty (Acute) History of depression (Chronic) Surgical History H/O bone marrow transplant H/O wisdom tooth extraction Family History Mother Hypothyroidism Breast cancer Father Hyperlipidemia Prostate cancer Brother Hyperlipidemia Brother Depression Hypothyroidism Anxiety Maternal Grandfather , 77 Depression Heart disease Anxiety Paternal Grandfather , 85 Prostate cancer Bladder cancer Maternal Grandmother Diabetes Hypothyroidism Paternal Grandmother Hyperlipidemia Hodgkins disease Son No problems noted. Social History (Updated 01/31/24 @ 16:09 by Gabby Fraire) Smoking/Tobacco Use Status: Former Tobacco Use tobacco type: cigarettes Quit Date: 09/19/06 Tobacco: How many years used: 9 Quit status: quit date established Second Hand Exposure: Yes Smoking risk assessment performed?: Yes Alcohol Intake: current Alcohol Intake frequency: a few times a month Alcohol type: beer Drug use: Occasionally Substance use type: marijuana Caregiver/Support person: No Household members: children and other Details: 4 Housing: house Communication Needs: None Do you need help understanding health information?: Never current occupation: TEACHER Pets and animals: No Sexually active: Yes Do you think of yourself as: straight/heterosexual Current gender identity: male What is your relationship status?: How often do you talk on the phone with friends or family?: once per week How often do you get together with friends or relatives?: once per week How often do you attend latter-day or mormonism services?: decline to answer Do you belong to any clubs or organized social groups?: no Panel score (0-1 are the most socially isolated patients): 0 What type of physical activity do you participate in: weight lifting and running Duration: 30-45 minutes/day Frequency: 3-4 times per week Vianca/Jain: No preference Special vianca needs: No Seatbelt use: always Helmet use: Yes Helmet use: always Drive intox or ride w/intox driver trainee: No Do you feel safe at home: Yes Do you feel safe in your relationship?: Yes
[2024-11-24] MEDS: Omnipaque 350 MG/ML 100 ML BTL IJ (16:16)
[2024-11-24] MEDS: Normal Saline - Diluent 50 ML VIAL IJ (16:18)
[2024-11-24 16:26] LABS: Bilirubin Negative (Negative); Blood Negative (Negative); Clarity Clear (Clear); Glucose Negative (Negative); Ketones Negative (Negative); Leukocyte Esterase Negative (Negative); Nitrite Negative (Negative); Specific Gravity <= 1.005 (1.005-1.025); Urobilinogen 0.2 mg/dL (Up to 0.2)
[2024-11-24 16:45] LABS: Abs Immature Grans 0.02 10^3/uL (0.0-0.06); Absolute Basophil Count 0.03 10^3/uL (0.0-0.2); Absolute Eosinophil Count 0.05 10^3/uL (0.0-0.7); Absolute Lymphocyte Count 2.83 10^3/uL (1.2-3.4); Absolute Monocyte Count 0.86 10^3/uL (0.1-0.8); Absolute Neutrophil Count 4.72 10^3/uL (1.2-6.7); Basophils % 0.4 %; Eosinophils % 0.6 %; HCT 46.6 % (40.0-50.0); HGB 16.2 g/dL (13.5-17.5); Immature Grans % 0.2 %; Lymphocytes % 33.3 %; MCH 32.5 pg (27.0-33.0); MCHC 34.8 % (32.0-36.0); MCV 93 fL (80-95); MPV 10.1 fL (8.0-11.0); Monocytes % 10.1 %; Neutrophils % 55.4 %; Platelet Count 163 10^3/uL (130-400); RBC 4.99 10^6/uL (4.36-5.78); RDW 13.2 % (11.8-14.1); RDW-SD 45.3 fL; WBC 8.51 10^3/uL (4.4-10.8)
[2024-11-24 17:19] LABS: ALT 29 U/L (16-63); AST 20 U/L (15-37); Albumin 4.1 g/dL (3.4-5.0); Alkaline Phosphatase 91 U/L (46-116); Anion Gap 10.5 mmol/L (3-11); BUN 7 mg/dL (7-18); Bilirubin, Total 1.2 mg/dL (0.2-1.0); CO2 29.5 mmol/L (21.0-32.0); CREATININE 1.1 mg/dL (0.70-1.30); Calcium 9.3 mg/dL (8.5-10.1); Chloride 101 mmol/L (98-107); Estimated GFR 84.37 (mL/min/1.73m2); Glucose 87 mg/dL (74-106); Potassium 3.4 mmol/L (3.5-5.1); Sodium 141 mmol/L (136-145); Total Protein 7.8 g/dL (6.4-8.2)
[2024-11-24] MEDS: Amox. 875/Clav. 125, 2 TABS/BTL 1 TAB PO (17:50)
[2024-11-24] MEDS: Ondansetron O.D.T. 4 MG TABEF, 3 TABS/BTL PO (17:51)
== END 2024-11-24 17:57 | disposition home or self-care (01) ==
PROVIDERS: Emergency Provider Emergency Medicine; PCP Family Medicine
DX: K57.30 Diverticulosis of large intestine without perforation or abscess without bleeding (principal)
CPT/HCPCS: 36415; 80053; 99285; 74177; 81003; 85025; 99284; J3490

== ENCOUNTER 2025-02-05 02:44 | Outpatient (CLI) | payer BC, SELFPAY ==
[2025-02-05 13:24] LABS: Iron 166 ug/dL (65-175)
[2025-02-05 13:51] LABS: Calculated LDL 115 mg/dL (<100); Cholesterol 201 mg/dL (<200); HDL Cholesterol 66 mg/dL (>or=40); TSH (W/Ref FT4) 3.05 uIU/mL (0.36-3.74); Triglyceride 101 mg/dL (<150); Vitamin B12 444 pg/mL (193-986); Vitamin D 25 Total 17 ng/mL (30-100)
[2025-02-05 23:07] LABS: PSA, Screening 0.8 ng/mL (<=2.5)
== END 2025-02-05 02:45 | disposition home or self-care (01) ==
PROVIDERS: PCP Family Medicine; Visit Provider Family Medicine
DX: G40.909 Epilepsy, unspecified, not intractable, without status epilepticus (principal); E03.9 Hypothyroidism, unspecified; E78.5 Hyperlipidemia, unspecified; D64.9 Anemia, unspecified; Z12.5 Encounter for screening for malignant neoplasm of prostate; I10 Essential (primary) hypertension
CPT/HCPCS: 36415; 80061; 82306; 84153; 82607; 83540; 84132; 84443

== ENCOUNTER 2025-02-14 10:15 | Day surgery (SDC) | payer BC, SELFPAY ==
[2025-02-14 10:52] VITALS: BP 120/95; PULSE 82; RESP 18; TEMP 36.2; O2SAT 97
[2025-02-14] MEDS: Lactated Ringers 1,000 ML 80 ML IV (11:24)
--- NOTE | 2025-02-14 11:58 | SCONE_ITS ---
Date of service: 02/14/25 Time of Service: 11:58 Assessment and Plan Assessment and plan (1) Screening for colon cancer: Status: Acute Assessment and plan: 44-year-old man due for for screening colonoscopy and also has been having diverticular?related issues on and off. Plan: Colonoscopy History of Present Illness Narrative: 44-year-old man is well-known to me. He has been having on and off left lower quadrant abdominal discomfort but nothing severe. We talked about potentially canceling the procedure but overall, his symptoms are mild enough where we can still proceed safely. He wanted to proceed. [facility] All Active Problems (Updated 02/14/25 @ 11:59 by Chad Whitmore MD) Screening for colon cancer (Acute) Subconjunctival hemorrhage (Acute) Low back pain (Acute) Knee pain, right anterior (Acute) Non-cardiac chest pain (Acute) Left foot pain (Acute) Folliculitis (Acute) Erectile disorder, generalized, mild (Acute) STD exposure (Acute) Healthy adult (Acute) Hyperglycemia (Acute) Lumbar strain (Acute) Post-traumatic stress disorder (Acute) Impacted cerumen of left ear (Acute) Abdominal wall contusion (Acute) With small area of abrasion and his history of immune suppression, will give a short course antibiotic. Check LFT's but doubtful liver injury. Call or return as needed. 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 Right sided. Herpes zoster (Acute) a. Right sided face. Surgical History H/O bone marrow transplant 2007 H/O wisdom tooth extraction Family History Mother Hypothyroidism Breast cancer Father Hyperlipidemia Prostate cancer Brother Hyperlipidemia Brother Depression Hypothyroidism Anxiety Maternal Grandfather , 77 Depression Heart disease Anxiety Paternal Grandfather , 85 Prostate cancer Bladder cancer Maternal Grandmother Diabetes Hypothyroidism Paternal Grandmother Hyperlipidemia Hodgkins disease Son No problems noted. Social History Smoking/Tobacco Use Status: Former Tobacco Use tobacco type: cigarettes Quit Date: 09/19/06 Tobacco: How many years used: 9 Quit status: quit date established Second Hand Exposure: Yes Smoking risk assessment performed?: Yes Alcohol Intake: current Alcohol Intake frequency: a few times a month Alcohol type: beer Drug use: Occasionally Substance use type: marijuana Details: alcohol: t-14. Marijuana: edible , t-3 Caregiver/Support person: No Household members: children and other Details: 4 Housing: house Communication Needs: None Do you need help understanding health information?: Never current occupation: TEACHER Pets and animals: No Sexually active: Yes Do you think of yourself as: straight/heterosexual Current gender identity: male What is your relationship status?: How often do you talk on the phone with friends or family?: once per week How often do you get together with friends or relatives?: once per week How often do you attend uatsdin or yazidi services?: decline to answer Do you belong to any clubs or organized social groups?: no Panel score (0-1 are the most socially isolated patients): 0 What type of physical activity do you participate in: weight lifting and running Duration: 30-45 minutes/day Frequency: 3-4 times per week Vianca/Sikhism: No preference Special vianca needs: No Seatbelt use: always Helmet use: Yes Helmet use: always Drive intox or ride w/intox furniture mover driver: No Do you feel safe at home: Yes Do you feel safe in your relationship?: Yes Exam Narrative Exam Narrative: Gen: Non-toxic, comfortable and interactive Neuro: Alert and oriented x3 Psych: Good mood and affect. Good insight and understanding into condition. Chest: Non-labored breathing, no wheezing, no visible shortness of breath. Heart: Regular Abdomen: Soft, nondistended and nontender Results Last Vital Signs Temp 97.2 F L 02/14/25 10:52 Pulse 82 02/14/25 10:52 Resp 18 02/14/25 10:52 BP 120/95 H 02/14/25 10:52 Pulse Ox 97 02/14/25 10:52
--- NOTE | 2025-02-14 12:05 | W.COLOREPORT ---
Date of service: 02/14/25 Time of Service: 12:05 Colonoscopy Report Procedure Description: PROCEDURES PERFORMED: 1. Colonoscopy PREOPERATIVE DIAGNOSIS: Screening colonoscopy POSTOPERATIVE DIAGNOSIS: Mild sigmoid diverticulitis, grade 1 internal hemorrhoids SURGEON: Deborah Whitmore MD INDICATION FOR PROCEDURE: the patient is a 44-year-old man with chronic diverticular disease, occasional symptoms as well as for his for screening colonoscopy. No family history of colon cancer. FINDINGS: Normal terminal ileum. His diverticular disease is isolated to the sigmoid colon. It is mild?moderate in severity but there is noticeable fibrosis of the sigmoid colon and there is also visible, circumferential mild inflammation and irritation throughout about 5-10 cm of sigmoid. No erosions or ulcerations. Minimal grade 1 internal hemorrhoids are present. SURVEILLANCE interval/FOLLOW-UP: 10 years. If his diverticular symptoms continue to be an ongoing issue, he may need to consider an elective sigmoid resection. SPECIMENS: None EBL: Minimal COMPLICATIONS: None QUALITY of prep: Excellent Procedure in detail: The patient gave written consent and was in agreement with the indications, the potential risks as well as the benefits of the procedure. They were taken to the endoscopy suite and laid in the left lateral decubitus position. A timeout was performed and anesthesia was administered which was tolerated well. I started the procedure. Digital rectal and visual examination was performed and grossly within normal limits. A well-lubricated flexible colonoscope was then introduced and passed without any notable difficulty all the way to the cecum identified by the ileocecal valve and the appendiceal orifice. The terminal ileum was deeply intubated and looked normal. The scope was then slowly withdrawn with the above-noted findings. The patient tolerated the procedure well and was taken to the PACU in hemodynamically stable condition.
--- NOTE | 2025-02-14 12:05 | W.PM.DSUDISC ---
Date of service: 02/14/25 Discharge Plan Disposition Patient Disposition: Home Condition: Good Discharge Details Attending Provider: Chad Whitmore Primary Care Provider: David Roman Home Meds and New Rx's Prescriptions: No Action alprazolam 0.5 mg tablet 0.25 - 0.5 mg PO TID PRN (Reason: anxiety) Qty: 10 0RF esomeprazole magnesium [Nexium] 40 mg capsule,delayed release(DR/EC) 40 mg PO DAILY Qty: 90 4RF ezetimibe [Zetia] 10 mg tablet 10 mg PO DAILY Qty: 90 3RF tadalafil 5 mg tablet 5 mg PO DAILY PRN (Reason: sexual activity) Qty: 30 5RF polyethylene glycol 3350 17 gram/dose powder 238 g PO ONCE Qty: 238 0RF Rx Instructions: take per colonoscopy instructions bisacodyl [Dulcolax (bisacodyl)] 5 mg tablet,delayed release (DR/EC) 5 mg PO ONCE Qty: 4 0RF Rx Instructions: take per colonoscopy instructions CPAP levothyroxine [Synthroid] 50 mcg tablet 50 mcg PO DAILY Qty: 90 3RF imatinib [Gleevec] 400 MG tablet 400 mg PO DAILY Qty: 90 cholecalciferol (vitamin D3) 250 mcg (10,000 unit) capsule 250 mcg PO DAILY Discharge Instructions Additional Instructions: FINDINGS: There was some mild inflammation of your sigmoid colon, nothing to worry about as long as it continues to get better and go away. No cancer anywhere. No polyps. Again, the inflammation was pretty mild overall and as long as you continue to improve and get better, nothing to worry about. Repeat a colonoscopy in 10 years. Activity:: Activity as Tolerated Diet:: As Tolerated Discharge Orders Discharge Orders: Discharge Order (Routine); Ordered 02/14/25 Ordered By: Chad Whitmore DS: Diagnosis Discharge Diagnosis (1) Screening for colon cancer: Status: Acute
--- NOTE | 2025-02-14 12:06 | W.ANESPRE ---
General Info Date of Service Date Performed: 02/14/25 Height: 6 ft Weight: 94.8 kg Body Mass Index (BMI): 28.3 Surgical Procedure: Operation Date: 02/14/25 11:20 Proposed Procedure Side Surgeon p Colonoscopy Chad Whitmore MD Meds Allergies and Home Medications Allergies Allergy/AdvReac Type Severity Reaction Status Date / Time amitriptyline AdvReac Intermediate muscle Verified 02/14/25 10:47 weakness Home Medication ?Medication ?Instructions ?Recorded imatinib 400 mg tablet (Gleevec) 400 mg PO DAILY ##90 10/01/13 Cpap 09/24/16 levothyroxine 50 mcg tablet 50 mcg PO DAILY #90 tab-caps 09/03/24 (Synthroid) bisacodyl 5 mg tablet,delayed 5 mg PO ONCE colonscopy bowel prep 01/03/25 release (Dulcolax (bisacodyl)) #4 tabs polyethylene glycol 3350 17 238 g PO ONCE colonoscopy prep 01/03/25 gram/dose oral powder #238 grams alprazolam 0.5 mg tablet 0.25 - 0.5 mg (0.5 - 1 x 0.5 mg) 01/29/25 PO TID PRN anxiety #10 tabs esomeprazole magnesium 40 mg 40 mg PO DAILY #90 tab-caps 01/29/25 capsule,delayed release (Nexium) ezetimibe 10 mg tablet (Zetia) 10 mg PO DAILY #90 tab-caps 01/29/25 tadalafil 5 mg tablet 5 mg PO DAILY PRN sexual activity 01/29/25 #30 tabs cholecalciferol (vitamin D3) 250 250 mcg PO DAILY 02/14/25 mcg (10,000 unit) capsule Current Visit Medications: Current Medications Generic Name Dose Route Start Last Admin Trade Name Freq PRN Reason Stop Dose Admin Ringer's Solution 1,000 mls @ 80 mls/hr 02/14/25 06:00 02/14/25 11:24 IV 02/14/25 23:59 80 mls/hr INFUSION DARIA Administration IV Miscellaneous Supplies 1 each 02/14/25 06:00 Iv Access IV 02/14/25 23:59 DIRECTED DARIA Sodium Chloride 0 ml 02/14/25 06:00 Normal Saline Flush 10 Ml Syr IV 02/14/25 23:59 PRN PRN Sodium Chloride 0 ml 02/14/25 06:00 Normal Saline 10 Ml Vial IJ 02/14/25 23:59 DIRECTED PRN Sterile Water 0 ml 02/14/25 06:00 Water,Injection,Sterile 10 Ml Vial IJ 02/14/25 23:59 DIRECTED PRN PFSH Active Problems Active Problems: Problem Status Onset Code Screening for colon cancer Acute Z12.11 Subconjunctival hemorrhage Acute H11.30 Low back pain Acute M54.50 Knee pain, right anterior Acute M25.561 Non-cardiac chest pain Acute R07.89 Left foot pain Acute M79.672 Folliculitis Acute L73.9 Erectile disorder, generalized, mild Acute F52.21 STD exposure Acute Z20.2 Healthy adult Acute Hyperglycemia Acute R73.9 Lumbar strain Acute S39.012A Post-traumatic stress disorder Acute F43.10 Impacted cerumen of left ear Acute H61.22 Abdominal wall contusion Acute S30.1XXA [place] Brown auricular syndrome Acute 04/25/14 B02.21 Pre B-cell acute lymphoblastic leukemia (ALL) Acute C91.00 Pes planus of both feet Acute 18 M21.41, M21.42 Obstructive sleep apnea Acute 16 G47.33 Hypothyroidism Acute 16 E03.9 Herpes zoster Acute B02.9 Depression Acute 16 F32.9 History of DVT (deep vein thrombosis) Chronic Z86.718 GERD (gastroesophageal reflux disease) Chronic K21.9 History of depression Chronic Z86.59 Dyslipidemia Chronic E78.5 Lymphocytic leukemia Chronic C91.90 Dennison palsy Acute G51.0 Right eye difficulty Acute Cellulitis, face Acute L03.211 Herpes zoster Acute B02.9 Surgical History Surgical History H/O bone marrow transplant 2007 H/O wisdom tooth extraction Tobacco Smoking/Tobacco Use Status: Former Tobacco Use Passive smoking exposure: No Second hand exposure: Yes Alcohol Alcohol Intake: current Alcohol intake frequency: a few times a month Alcohol type: beer Substance Use Substance use: Occasionally Substance use type: marijuana Details: alcohol: t-14. Marijuana: edible , t-3 Vital Signs and Lab Results Vital Signs Most Recent Vital Signs in EMR: Most Recent Vital Signs Temp Pulse Resp BP Pulse Ox 36.2 C L 82 18 120/95 H 97 02/14/25 10:52 02/14/25 10:52 02/14/25 10:52 02/14/25 10:52 02/14/25 10:52 Lab Results Blood Type / Crossmatch: No Data to Display Complete Blood Count: No Data to Display Complete Metabolic Panel: Potassium 4.0 mmol/L (3.5-5.1) 02/05/25 12:12 Liver Function Panel: No Data to Display Coagulation Panel: No Data to Display Cardiac Panel: No Data to Display Arterial Blood Gas: No Data to Display Venous Blood Gas: No Data to Display Pancreas Panel: No Data to Display Thyroid Panel: Thyroid Stimulating Hormone (TSH) 3.05 uIU/mL (0.36-3.74) 02/05/25 12:12 Infectious Disease: No Data to Display Blood Cultures: No Data to Display Toxicology Panel: No Data to Display Anesthesia Assessment and Plan Anesthesia History Personal History: No History of Anesthesia Complications Family History: No Family History of Anesthesia Complications Exercise Tolerance Exercise Tolerance: Metabolic Equivalents>4 Pertinent Negatives Pertinent Negatives: No Symptoms of GERD Cardiac & Pulmonary Exam Cardiac Exam: Normal S1/S2 Heart Sounds Pulmonary Exam: Clear Bilateral Breath Sounds Implantable Cardiac Device Does patient have a Pacemaker or an ICD?: No Airway Exam Known Difficult Airway: No Mallampati Class: 2 Mouth Opening: Normal (> 3cm) Thyromental Distance: Greater than 3 cm Neck Range of Motion: Full ROM Neck Circumference: Normal Teeth Condition: Normal Dentition ASA Classification ASA Score: ASA 2 Emergency Case?: No NPO Status NPO Status: NPO Clears >2 hours, Solids >8 hours Anesthesia Plan Resuscitation Status: Full Code Anesthesia Technique: General Anesthesia Airway Planned: Natural Airway Monitors Used: Standard Monitors
[2025-02-14 12:09] VITALS: BMI 28.3
[2025-02-14 12:46] VITALS: BP 127/88; PULSE 79; RESP 16; TEMP 36.3; O2SAT 98
[2025-02-14 13:13] VITALS: BP 137/97; PULSE 66; RESP 16; TEMP 36.5; O2SAT 100
--- NOTE | 2025-02-14 13:28 | W.ANESPOSTOP ---
Postoperative Evaluation Date, Time and Location Date Performed: 02/14/25 Time Performed: 13:28 Patient Location: Day Surgery Unit Vital Signs Most Recent Imported Vital Signs: Most Recent Vital Signs Temp Pulse Resp BP Pulse Ox 36.5 C 66 16 137/97 H 100 02/14/25 13:13 02/14/25 13:13 02/14/25 13:13 02/14/25 13:13 02/14/25 13:13 Pain Score Most Recent Pain Score: Most Recent Pain Score Pain Level 0 02/14/25 13:13 Assessment Mental Status: Awake (Alert & Oriented to Patient Baseline) Airway and Respiratory Function: Patent airway with normal (patient baseline) respiratory exam Cardiovascular Function: Hemodynamically Stable Hydration Status: Adequately Hydrated Nausea & Vomiting: No Nausea or Vomiting Pain: Pt. Denies Any Pain Peripheral Nerve Block: Patient did not receive a nerve block
== END 2025-02-14 13:27 | disposition home or self-care (01) ==
PROVIDERS: PCP Family Medicine; Visit Provider Student in an Organized Health Care Education/Training Program
PROC: 0DJD8ZZ Inspection of Lower Intestinal Tract, Via Natural or Artificial Opening Endoscopic (ICD-10-PCS; CPT 45378; principal; 2025-02-14 11:15)
DX: Z12.11 Encounter for screening for malignant neoplasm of colon (principal); K64.0 First degree hemorrhoids; K57.32 Diverticulitis of large intestine without perforation or abscess without bleeding
CPT/HCPCS: 45378; J2704